=== PATIENT | female | born 1950 | race Caucasian/White ===

== ENCOUNTER 2024-08-11 02:33 | Emergency (ER) | payer OTHER ==
[2024-08-11 02:42] VITALS: RESP 16; BMI 29.2
[2024-08-11] MEDS ORDERED: ONDANSETRON *ODT* 4 MG TABLET ONE (03:57)
[2024-08-11] MEDS ORDERED: ACETAMINOPHEN 325 MG TABLET (FP) ONE (03:57)
[2024-08-11] MEDS: ACETAMINOPHEN 500 MG TABLET (FP) PO ONE (03:58)
[2024-08-11] MEDS: ONDANSETRON 4 MG TABLET PO ONE (03:58)
[2024-08-11] MEDS: SODIUM CHLORIDE 0.9% 500 ML INFUS.BAG IV ONE (04:05)
[2024-08-11 04:19] LABS: ABSOLUTE IMMATURE GRANULOCYTES 0.03 x10^3/uL (0.0-0.031); BASOPHILS # 0.03 x10^3/uL (0.01-0.08); EOSINOPHIL % 0.6 % (0.7-5.8); EOSINOPHILS # 0.05 x10^3/uL (0.04-0.36); HEMATOCRIT 40.6 % (34.1-44.9); HEMOGLOBIN 13.2 g/dL (11.2-15.7); MCHC 32.5 g/dl (32.2-35.5); MEAN CELL VOLUME 90.4 fl (79.4-94.8); MEAN PLT VOLUME 9.7 fl (9.4-12.3); MONOCYTE # 0.57 x10^3/uL (0.24-0.86); MONOCYTE % 7.2 % (4.7-12.5); PLATELET COUNT 207 x10^3/uL (182-369); RDW 13.2 % (12.4-16.6)
[2024-08-11 04:43] LABS: POTASSIUM 4.3 mmol/L (3.5-5.1)
[2024-08-11 04:45] LABS: ALBUMIN 4.2 g/dl (3.4-5.0); BLOOD UREA NITROGEN 12.9 mg/dL (7-18)
[2024-08-11 04:48] LABS: CREATININE 0.8 mg/dL (0.55-1.3)
[2024-08-11 04:50] LABS: BILIRUBIN,TOTAL 0.9 mg/dL (0.2-1); TOT PROT 7.7 g/dl (6.4-8.2)
[2024-08-11 05:38] VITALS: BP 121/82; PULSE 80; TEMP 98
== END 2024-08-11 05:39 | disposition home or self-care (01) ==
LOC: JER 02:33
DX: R11.2 Nausea with vomiting, unspecified (principal); R42 Dizziness and giddiness; R51.9 Headache, unspecified
CPT/HCPCS: 0241U-QW; 36415; 80053; 83690; 83735; 84484; 85025; 93005; 93010; 99284-25